=== PATIENT | female | born 1980 ===

== ENCOUNTER 2016-10-18 01:01 | Emergency (ER) | payer MEDICAID ==
[2016-10-18 01:10] VITALS: PULSE 100; RESP 20
--- NOTE | 2016-10-18 01:48 | C.PDOC ---
History Of Present Illness 35 year old patient presents to the ED complaining of left elbow pain s/p injury 2 months ago. Patient states she fell at the gym. The pain has been continuous especially when she tries to fully extend her left arm. Patient denies follow up with her PMD, taking any pain medications, numbness, weakness, or fever. Time Seen by Provider: 10/18/16 01:44 Chief Complaint (Nursing): Upper Extremity Problem/Injury History Per: Patient History/Exam Limitations: no limitations Onset/Duration Of Symptoms: Other (2 months ago) Current Symptoms Are (Timing): Still Present Quality: "Pain" Severity: Moderate Pain Scale Rating Of: 4 Exacerbating Factor(s): Other (full extension of the arm) Recent travel outside of the [place]: No Past Medical History Reviewed: Historical Data, Nursing Documentation, Vital Signs Vital Signs: Last Vital Signs Temp 97.4 F L 10/18/16 03:15 Pulse 100 H 10/18/16 03:15 Resp 20 10/18/16 03:15 BP 114/78 10/18/16 03:15 Pulse Ox 99 10/18/16 03:15 - Medical History PMH: No Chronic Diseases Family History: States: Unknown Family Hx - Social History Hx Alcohol Use: No Hx Substance Use: No Review Of Systems Except As Marked, All Systems Reviewed And Found Negative. Constitutional: Negative for: Fever Respiratory: Negative for: Shortness of Breath Musculoskeletal: Positive for: Other (left elbow pain) Neurological: Negative for: Weakness, Numbness Physical Exam - Physical Exam Appears: Non-toxic, No Acute Distress Extremity: Normal ROM, Tenderness (mild tenderness to the posterios aspect of the left elbow, unable to fully extend), Capillary Refill (<2 seconds), No Deformity, No Swelling Neurological/Psych: Oriented x3, Normal Speech, Normal Cognition, Normal Motor, Normal Sensation Gait: Steady ED Course And Treatment O2 Sat by Pulse Oximetry: 100 (RA) Pulse Ox Interpretation: Normal - Other Rad left elbow X-Ray: Interpreted by Me (radial head fx age ?), Viewed By Me Interpretation: questionable radial head fracture Progress Note: Plan: -Left elbow x-ray Medical Decision Making Medical Decision Making: CT ordered and reviewed (+) non displace radial head fx Results discussed with pt Plan dc ortho fu Disposition Counseled Patient/Family Regarding: Diagnosis, Need For Followup - Disposition Referrals: Diana Aparicio MD [Staff Provider] - [facility] [Outside] Disposition: HOME/ ROUTINE Disposition Time: 03:59 Condition: FAIR Additional Instructions: Make apt with orthopedist - call for an apt use sling for comfort Prescriptions: Naproxen [Naprosyn] 1 tab PO BID PRN #25 tab PRN Reason: Pain Instructions: Elbow Fracture in Adults (ED) - Clinical Impression Clinical Impression: Radial head fracture - Scribe Statement The provider has reviewed the documentation as recorded by the Scribabby Pulliam Provider Attestation: All medical record entries made by the Scribe were at my direction and personally dictated by me. I have reviewed the chart and agree that the record accurately reflects my personal performance of the history, physical exam, medical decision making, and the department course for this patient. I have also personally directed, reviewed, and agree with the discharge instructions and disposition.
[2016-10-18 03:39] VITALS: BP 114/78; TEMP 97.4
--- NOTE | 2016-10-18 03:55 | CT ---
EXAM: CT Left Upper Extremity Without Intravenous Contrast, Elbow CLINICAL HISTORY: 35 years old, female; Pain; Elbow; Left; Additional info: Elbow pain R/O radial head FX TECHNIQUE: Axial computed tomography images of the left elbow without intravenous contrast. This CT exam was performed using one or more of the following dose reduction techniques: automated exposure control, adjustment of the mA and/or kV according to patient size, and/or use of iterative reconstruction technique. Coronal and sagittal reformatted images were created and reviewed. COMPARISON: No relevant prior studies available. FINDINGS: Bones/joints: Mildly impacted, intraarticular fracture radial head. Mild degenerative changes of radiocapitellar and ulnotrochlear joints. No dislocation. Joint effusion. Soft tissues: Mild soft tissue stranding about elbow. IMPRESSION: 1. Proximal radius fracture. 2. Incidental/non-acute findings are described above.
[2016-10-18 04:01] VITALS: O2SAT 100
--- NOTE | 2016-10-18 11:46 | RAD ---
PROCEDURE: Radiographs of the left elbow. HISTORY: fell 2 mths ago still with pain COMPARISON: No prior. FINDINGS: BONES: There is lucency line through the head of the radius suspicious for acute/subacute fracture. JOINTS: Normal. No osteoarthritis. SOFT TISSUES: Normal. JOINT EFFUSION: Suspicious for small joint effusion OTHER FINDINGS: None IMPRESSION: Suspicious for subacute fracture at the left radial head associated small joint effusion.
== END 2016-10-18 04:14 | disposition home or self-care (01) ==
LOC: C.ER 01:01
DX: S52.125A Nondisplaced fracture of head of left radius, initial encounter for closed fracture (principal); W18.30XA Fall on same level, unspecified, initial encounter; Y93.89 Activity, other specified; Y92.39 Other specified sports and athletic area as the place of occurrence of the external cause

== ENCOUNTER 2016-11-15 07:43 | Emergency (ER) | payer MEDICAID ==
[2016-11-15 08:50] LABS: RBC URINE 2 /hpf (0-3); URINE BACTERIA RARE (<OCC); URINE BILIRUBIN NEGATIVE (NEGATIVE); URINE BLOOD 2+ (NEGATIVE); URINE COLOR Yellow (YELLOW); URINE GLUCOSE (UA) NORMAL (Normal); URINE KETONE NEGATIVE (NEGATIVE); URINE LEUKOCYTE ESTERASE TRACE Leu/uL (Negative); URINE PROTEIN NEGATIVE (NEGATIVE); URINE UROBILINOGEN NORMAL mg/dL (0.2-1.0); WBC URINE 4 /hpf (0-5)
--- NOTE | 2016-11-15 10:10 | C.PDOC ---
History Of Present Illness 35 y/o female presents to the ED with complains of abdominal pain since last night with associated nausea and diarrhea. Denies vomiting, fever, chest pain, SOB or any other complaints. Denies sick contacts or known suspicious foods. Time Seen by Provider: 11/15/16 08:09 Chief Complaint (Nursing): Abdominal Pain History Per: Patient History/Exam Limitations: no limitations Onset/Duration Of Symptoms: Hrs Current Symptoms Are (Timing): Still Present Context: Food Severity: Moderate Radiation Of Pain To:: None Quality Of Discomfort: "Pain" Associated Symptoms: Nausea, Diarrhea. denies: Fever, Vomiting, Chest Pain Exacerbating Factors: Food Alleviating Factors: None Recent travel outside of the [place]: No Past Medical History Reviewed: Historical Data, Nursing Documentation, Vital Signs Vital Signs: Last Vital Signs Temp 98.4 F 11/15/16 11:13 Pulse 98 H 11/15/16 11:13 Resp 18 11/15/16 11:13 BP 112/80 11/15/16 11:13 Pulse Ox 95 11/15/16 11:21 Family History: States: Unknown Family Hx - Social History Hx Alcohol Use: No Hx Substance Use: No - Immunization History Hx Tetanus Toxoid Vaccination: No Hx Influenza Vaccination: No Hx Pneumococcal Vaccination: No Review Of Systems Except As Marked, All Systems Reviewed And Found Negative. Constitutional: Negative for: Fever Cardiovascular: Negative for: Chest Pain Respiratory: Negative for: Shortness of Breath Gastrointestinal: Positive for: Nausea, Abdominal Pain, Diarrhea. Negative for : Vomiting Physical Exam - Physical Exam Appears: Non-toxic, No Acute Distress Skin: Warm, Dry, No Rash Head: Atraumatic, Normacephalic Neck: Normal ROM, Supple Chest: Symmetrical Cardiovascular: Rhythm Regular, No Murmur Respiratory: Normal Breath Sounds, No Rales, No Rhonchi, No Wheezing Gastrointestinal/Abdominal: Soft, Tenderness (epigastric), No Guarding, No Rebound, Other (obese) Extremity: Bilateral: Atraumatic Neurological/Psych: Oriented x3 ED Course And Treatment O2 Sat by Pulse Oximetry: 95 (room air) Pulse Ox Interpretation: Normal Disposition - Disposition Disposition: HOME/ ROUTINE Disposition Time: 11:19 Condition: STABLE Additional Instructions: Follow up with your PMD /Clinic within 1-2 days. Return to Ed if feel worse. Prescriptions: Famotidine [Pepcid] 20 mg PO BID #20 tab Ondansetron [Zofran Odt] 1 - 2 tab PO .Q4-6H PRN #20 odt PRN Reason: Nausea/Vomiting Instructions: Gastroenteritis (ED) - Clinical Impression Clinical Impression: Gastroenteritis - PA / NETWORK DESIGN ARCHITECT / Resident Statement MD/DO has reviewed & agrees with the documentation as recorded. - Scribe Statement The provider has reviewed the documentation as recorded by the Scribe Ruben Chaudhari All medical record entries made by the Sherieibabby were at my direction and personally dictated by me. I have reviewed the chart and agree that the record accurately reflects my personal performance of the history, physical exam, medical decision making, and the department course for this patient. I have also personally directed, reviewed, and agree with the discharge instructions and disposition.
[2016-11-15 11:13] VITALS: BP 112/80; PULSE 98; RESP 18; TEMP 98.4
[2016-11-15 11:19] VITALS: O2SAT 95
== END 2016-11-15 11:39 | disposition home or self-care (01) ==
LOC: C.ER 07:43
DX: K52.9 Noninfective gastroenteritis and colitis, unspecified (principal)

== ENCOUNTER 2016-12-06 05:34 | Emergency (ER) | payer MEDICAID ==
[2016-12-06 05:47] VITALS: BP 122/87; PULSE 110; RESP 22; TEMP 97.4; O2SAT 96
--- NOTE | 2016-12-06 05:52 | C.PDOC ---
History Of Present Illness Patient is a 36 year old female who presents to the ER with a complaint of left foot and ankle pain and swelling for the past 2 days. Patient states she tripped on a weight at the gym and hurt her left foot. Patient reports treating her foot with ice with no relief. Denies calf or knee pain, weakness or numbness. Time Seen by Provider: 12/06/16 05:48 Chief Complaint (Nursing): Lower Extremity Problem/Injury History Per: Patient History/Exam Limitations: no limitations Onset/Duration Of Symptoms: Days (2) Current Symptoms Are (Timing): Still Present Recent travel outside of the [place]: No - Ankle/Foot Description Of Injury: Struck Against Object (tripped on weight) Past Medical History Reviewed: Historical Data, Nursing Documentation, Vital Signs Vital Signs: Last Vital Signs Temp 97.4 F L 12/06/16 05:43 Pulse 110 H 12/06/16 05:43 Resp 22 12/06/16 05:43 BP 122/87 12/06/16 05:43 Pulse Ox 96 12/06/16 06:22 - Medical History PMH: No Chronic Diseases Surgical History: No Surg Hx Family History: States: Unknown Family Hx - Social History Hx Alcohol Use: No Hx Substance Use: No - Immunization History Hx Tetanus Toxoid Vaccination: No Hx Influenza Vaccination: No Hx Pneumococcal Vaccination: No Review Of Systems Musculoskeletal: Positive for: Foot Pain (Left w/ swelling) Neurological: Negative for: Weakness, Numbness Physical Exam - Physical Exam Appears: Well, Non-toxic Skin: Normal Color, Warm, Dry Head: Atraumatic, Normacephalic Eye(s): bilateral: Normal Inspection, EOMI Oral Mucosa: Moist Neck: Normal ROM Extremity: Tenderness (Lateral left foot and ankle), No Calf Tenderness, No Deformity, Swelling (Lateral left foot and ankle), Other (Ecchymosis, lateral left foot and ankle) Pulses: Left Dorsalis Pedis: Normal Neurological/Psych: Oriented x3, Normal Speech, Normal Motor, Normal Sensation ED Course And Treatment O2 Sat by Pulse Oximetry: 96 Medical Decision Making Medical Decision Making: Impression: left foot injury Differential diagnosis includes but not limited to: contusion, fracture, sprain Plan: * Motrin * Xray foot and ankle Progress: Xray reviewed by me showing soft tissue swelling and no acute fracture of foot or ankle ephraim bandage and cast shoe applied by CP. Patient advised to take analgesics and to follow up with orthopedic or podiatry if pain persists Disposition Counseled Patient/Family Regarding: Diagnosis, Need For Followup, Rx Given - Disposition Referrals: Podiatry Clinic [Outside] Disposition: HOME/ ROUTINE Disposition Time: 06:21 Condition: STABLE Additional Instructions: Xray reviewed showing no acute fracture or dislocation. Advise to rest, ice and elevate joint. Take pain medication as needed, ibuprofen 600mg every 8 hours with food to not upset stomach. If pain persists, follow up with orthopedic in one week. Prescriptions: Ibuprofen [Motrin] 600 mg PO Q8 #30 tab Instructions: Foot Contusion (ED) Forms: Work Excuse - POA Present On Arrival: None - Clinical Impression Clinical Impression: Contusion, foot - Scribe Statement The provider has reviewed the documentation as recorded by the Scribabby Hoskins All medical record entries made by the Scribe were at my direction and personally dictated by me. I have reviewed the chart and agree that the record accurately reflects my personal performance of the history, physical exam, medical decision making, and the department course for this patient. I have also personally directed, reviewed, and agree with the discharge instructions and disposition.
--- NOTE | 2016-12-06 10:22 | RAD ---
PROCEDURE: Left Foot Radiographs. HISTORY: pain s.p injury COMPARISON: None. FINDINGS: BONES: Normal. No fracture. JOINTS: Normal. SOFT TISSUES: Normal. OTHER FINDINGS: None. IMPRESSION: No acute findings related to/accounting for the clinical presentation. Concordant results with the preliminary interpretation rendered by the emergency department physician procedure.
--- NOTE | 2016-12-06 10:22 | RAD ---
PROCEDURE: Left Ankle Radiographs. HISTORY: pain s.p injury COMPARISON: None FINDINGS: BONES: Normal. No fracture. JOINTS: Normal. No osteoarthritis. Ankle mortise maintained. Talar dome intact SOFT TISSUES: Diffuse soft tissue swelling. No distal tibial or fibular or talar. OTHER FINDINGS: None. IMPRESSION: Soft tissue swelling without acute articular or osseous abnormality.
== END 2016-12-06 07:03 | disposition home or self-care (01) ==
LOC: C.ER 05:34
DX: S90.32XA Contusion of left foot, initial encounter (principal); W18.40XA Slipping, tripping and stumbling without falling, unspecified, initial encounter; Y92.39 Other specified sports and athletic area as the place of occurrence of the external cause